=== PATIENT | female | born 1955 | race American Indian/Alaskan Native ===

== ENCOUNTER → 2018-01-03 | Outpatient (CLI) | payer BC ==
--- NOTE | 2018-01-03 14:55 | Ultrasound Report ---
ULTRASOUND GUIDED NEEDLE CORE BIOPSY OF A LEFT AXILLARY LYMPH NODE WITH CLIP PLACEMENT : 01/03/18 11:44:00 CLINICAL: Newly diagnosed left breast cancer. COMPARISON :None. FINDINGS: The procedure was explained to the patient and informed consent was obtained. Ultrasound demonstrated a suspicious lymph node in the inferior axilla measuring 2.3 x 2.0 x 0.6 cm with a thickened cortex measuring approximately 5 mm.. The skin in the axilla was prepped with Betadine and anesthetized with 1% lidocaine. Ultrasound guided needle core biopsy of the lymph node was performed through a small dermatotomy using 2% lidocaine with epinephrine for deep anesthesia and a 18-gauge Achieve biopsy device. 2 samples were obtained and placed in formalin. A clip was deployed within the lymph node. Hemostasis was achieved with minimal pressure and a sterile dressing was applied. The patient tolerated the procedure well and there were no apparent complications. She was discharged in good condition and was given instructions for wound care and followup. IMPRESSION: Uncomplicated ultrasound-guided needle core biopsy of a left lymph node with clip placement.
== END | disposition home or self-care (01) ==
LOC: SPVWC 11:44
PROVIDERS: ATTEND Surgery
DX: C50.212 Malignant neoplasm of upper-inner quadrant of left female breast (principal)
CPT/HCPCS: 38505; 76942; 88305; A4648; 88341; 88342; 88361

== ENCOUNTER 2018-01-24 12:25 | Outpatient (CLI) | payer BC ==
[2018-01-24 13:15] LABS: Blood Urea Nitrogen 11 mg/dL (7-17)
== END 2018-01-24 12:26 | disposition home or self-care (01) ==
LOC: LAB 12:25
PROVIDERS: ATTEND Surgery
DX: C50.212 Malignant neoplasm of upper-inner quadrant of left female breast (principal); Z88.0 Allergy status to penicillin; Z88.2 Allergy status to sulfonamides; Z91.040 Latex allergy status
CPT/HCPCS: 36415; 82565; 84520

== ENCOUNTER 2018-02-14 11:20 | Day surgery (SDC) | payer BC ==
[2018-02-14] MEDS ORDERED: VANCOMYCIN/NS 1 GM/250 ML 1 GM/250 ML BAG IV SCH (13:06)
[2018-02-14] MEDS ORDERED: LACTATED RINGERS 1,000 ML IV SCH ×2 (13:10→14:00)
[2018-02-14] MEDS ORDERED: ZOFRAN IV PRN (13:16)
[2018-02-14] MEDS ORDERED: DILAUDID IV PRN (13:16)
--- NOTE | 2018-02-14 13:17 | Anesthesia Day of Surgery ---
Anesthesia Day of Surgery - Day of Surgery Patient Examined: Yes Patient H&P Reviewed: Yes Patient is NPO: Yes
--- NOTE | 2018-02-14 13:18 | Anesthesia Consultation ---
Anesthesia Consult and Med Hx Date of service: 02/14/18 - Airway Anesthetic Teeth Evaluation: Good ROM Head & Neck: Adequate Mental/Hyoid Distance: Adequate Mallampati Class: Class II Intubation Access Assessment: Probably Good - Pulmonary Exam CTA: Yes - Cardiac Exam Cardiac Exam: RRR - Pre-Operative Health Status ASA Pre-Surgery Classification: ASA3 Proposed Anesthetic Plan: General (GA with LMA ok)
[2018-02-14] MEDS ORDERED: VERSED IV NR (14:00)
--- NOTE | 2018-02-14 14:21 | Short Stay Summary ---
Short Stay Documentation Date of service: 02/14/18 Narrative H&P: The patient is a 63 yo F with diagnosis of LEFT sided breast cancer who is a candidate for chemotherapy. She presents for port placement. - History H&P: obtained from office - Allergies and Medications Current Medications: Allergies latex Adverse Reaction (Unverified 01/24/18 12:26) Rash Penicillins Adverse Reaction (Unverified 01/24/18 12:27) Rash Sulfa (Sulfonamide Antibiotics) Adverse Reaction (Unverified 01/24/18 12:26) Rash Home Medications Medication Instructions Recorded Confirmed Last Taken Type Latanoprost 0.005% 1 drop OP QHS 02/13/18 02/14/18 02/13/18 History Olmesartan/Amlodipin/Hcthiazid 1 tab PO DAILY 02/13/18 02/14/18 02/13/18 History [Qzznfqy-Xsnotx-Pwev 40-10-25Mg] Active Medications Hydromorphone HCl (Dilaudid) 0.5 mg IV Q10MIN PRN PRN Reason: Pain , Severe (7-10) Vancomycin HCl (Vancomycin/Ns 1 Gm/250 Ml) 1 gm in 250 mls @ 167.007 mls/hr IV PREOP RADHA; Protocol Stop: 02/14/18 23:59 Last Admin: 02/14/18 13:41 Dose: 167.007 mls/hr Lactated Ringer's (Lactated Ringers) 1,000 mls @ 75 mls/hr IV DIRECT RADHA Stop: 02/14/18 23:59 Lactated Ringer's (Lactated Ringers) 1,000 mls @ 100 mls/hr IV DIRECT RADHA Midazolam HCl (Versed) 2 mg IV PREOP NR Stop: 02/14/18 23:59 Last Admin: 02/14/18 13:40 Dose: 2 mg Ondansetron HCl (Zofran) 4 mg IV ONCE PRN PRN Reason: Nausea And Vomiting - Brief post op/procedure progress note Date of procedure: 02/14/18 Pre-op diagnosis: left breast cancer Post-op diagnosis: same Procedure: Right internal jugular port a cath placement with ultrasound guidance, fluoroscopy Anesthesia: GETA, local Findings: good placement of port with no ptx Surgeon: KYLE CASTILLO Estimated blood loss: minimal Pathology: none Condition: stable - Hospital course Hospital course: Patient was observed in recovery room and discharged to home in stable condition. - Disposition Condition at discharge: Good Disposition: DC-01 TO HOME OR SELFCARE Short Stay Discharge Plan Activity: no restrictions Diet: regular Wound: open to air (may shower, pat incision dry, do not scrub.) Follow up with: RUDI LEGGETT [Other] - 7 Days LYNN ESPARZA MD [Staff Physician] - 7 Days Prescriptions: Ibuprofen [Motrin 800 MG tab] 800 mg PO Q8HR PRN #30 tablet PRN Reason: Pain , Severe (7-10)
[2018-02-14] MEDS ORDERED: DILAUDID ONE (14:30)
[2018-02-14] MEDS ORDERED: DIPRIVAN 10 MG/ML IV ONE ×2 (14:30→15:29)
[2018-02-14] MEDS ORDERED: XYLOCAINE MPF 2% ONE (14:30)
[2018-02-14] MEDS ORDERED: HEPARIN 10,000 UNITS/10 ML ONE (14:31)
[2018-02-14] MEDS ORDERED: NACL 0.9% 100 ML ONE (14:32)
[2018-02-14] MEDS ORDERED: MARCAINE 0.25% INFILTRATI ONE ×2 (14:33→15:22)
[2018-02-14] MEDS ORDERED: XYLOCAINE 1% 20 mL ONE (14:33)
[2018-02-14] MEDS ORDERED: XYLOCAINE 1% 20 mL INFILTRATI ONE (15:22)
--- NOTE | 2018-02-14 17:04 | Post Anesthesia Evaluation ---
- Post Anesthesia Evaluation Patient Participated: Yes Airway Patent: Yes Stable Respiratory Function: Yes Nausea/Vomiting: No Temp > 96.8F: Yes Pain Manageable: Yes Adequeate Hydration: Yes Anesthesia Complications: No
--- NOTE | 2018-02-14 17:48 | Operative Report ---
Operative Report Operative Report: Date of procedure: 02/14/18 Pre-op diagnosis: left breast cancer Post-op diagnosis: same Procedure: Right internal jugular port a cath placement with ultrasound guidance, fluoroscopy Anesthesia: GETA, local Findings: good placement of port with no ptx Surgeon: KYLE CASTILLO Estimated blood loss: minimal Pathology: none Condition: stable HPI and indication: Patient is a 63-year-old female who has been diagnosed with left-sided breast cancer and is deemed a candidate for chemotherapy. The patient was evaluated for Port-A-Cath placement as an outpatient. All of the risks associated with the procedure were discussed with the patient including but not limited to pneumothorax, infection, bleeding, malpositioned port, injury to other structures. The patient understands and all questions were answered. Consent was signed and placed on chart. Procedure in detail: The patient was identified in the preoperative area, taken back to operating room, placed on operating table in supine position. After anesthesia was induced both arms were tucked and upper chest and neck were prepped and draped in usual sterile fashion. A timeout was performed. The was placed in Trendelenburg position. Local anesthetic was infiltrated into the skin at the intended puncture site. Right subclavian vein excess was attempted however due to the patient's body habitus, it was too deep and could not safely be accessed. Therefore, the right internal jugular vein Was accessed on the first stick using ultrasound guidance. There was return of dark red, nonpulsatile blood. The wire was threaded under fluoroscopy without resistance and positioning confirmed. The needle was then removed. Using a 15 blade, an incision was made in the right upper chest and dissection carried down through the skin and subcutaneous tissue using Bovie electrocautery. Hemostasis was achieved along the way. A pocket for the port was then created bluntly and with electrocautery. The catheter was flushed and tunneled from the pocket to the wire. A breakaway catheter/dilator sheath then inserted over the wire under fluoroscopy, and the wire and dilator removed. The catheter was then inserted through the breakaway catheter which was then removed. The catheter sat flush under the skin. Using continuous fluoroscopy, the catheter was pulled back until the tip was visualized in the right atrium. The catheter was then cut to size and the port attached in the usual fashion. The port was then sutured into place to the pre-pectoral fascia using 2-0 Vicryl interrupted sutures. The wound was irrigated and hemostasis ensured. The port was tested with heparinized saline and there was return of blood and it flushed easily. The port was then instilled with 3000 units of heparin. The deep dermal layer was then closed with interrupted 3-0 Vicryl stitches. The skin incisions were closed with 4-0 Monocryl subcuticular stitches and skin glue. Intraoperative chest x-ray did show good positioning of the port, without evidence of pneumothorax. At the end of the case, all sponge, instrument, sharp counts were correct 2. The shunt was awoken from anesthesia extubated and taken to PACU in stable condition.
[2018-02-14 17:49] VITALS: BP 128/78
--- NOTE | 2018-02-15 08:08 | Fluoroscopy Report ---
FLUOROSCOPY CENTRAL VENOUS DEVICE PLACEMENT History: Left breast cancer, venous insufficiency Findings: AP view of the chest and a single fluoroscopic image of the precordial region demonstrates a right Jrfvgk-f-Sona has been inserted which terminates near the cavoatrial junction. The lungs are clear. No evidence for pneumothorax. Heart and mediastinal structures are unremarkable. Impression: Right Mcrkzo-g-Mkkn placement. No pneumothorax.
== END 2018-02-14 18:15 | disposition home or self-care (01) ==
LOC: OR 11:20
PROVIDERS: ATTEND Surgery
DX: C50.912 Malignant neoplasm of unspecified site of left female breast (principal); Z79.899 Other long term (current) drug therapy; Z88.0 Allergy status to penicillin; Z88.2 Allergy status to sulfonamides; Z91.040 Latex allergy status
CPT/HCPCS: 36561; 77001; C1788; J1170; J1644; J2250; J2704; J3370; J7120

== ENCOUNTER 2018-09-28 11:59 | Outpatient (CLI) | payer BC ==
--- NOTE | 2018-10-02 13:09 | Magnetic Resonance Report ---
BILATERAL BREAST MRI WITHOUT AND WITH CONTRAST: 09/28/18 11:59:00 CLINICAL: Left breast cancer status post neoadjuvant chemotherapy. COMPARISON:09/20/18 bilateral mammogram and 01/26/18 MRI. TECHNIQUE: Axial 1.0-mm T1 without, axial high resolution 2.0-mm T2 and axial 1.0-mm dynamic Vibrant high-resolution postcontrast T1 fat saturation sequences on a 1.5 Nereida magnet. The examination was performed with an 8 channel dedicated [employer] breast coil. Post processing with CAD and subtraction was performed on an [employer] workstation. 19.0 cc of Multihance was injected without incident for the contrast portion of the exam. Consent was obtained prior to the administration of the contrast. FINDINGS: Right: Minimal background parenchymal enhancement. No mass or suspicious enhancement. No suspicious lymph nodes. Left: Minimal background parenchymal enhancement. No mass or suspicious enhancement. The previously described enhancing masses are resolved. No suspicious left axillary or left internal mammary lymph nodes. The previously biopsied metastatic left axillary lymph node is smaller. IMPRESSION: Negative study with a complete response to chemotherapy by MRI. BI-RADS 6 -- Known Cancer
== END 2018-09-28 12:00 | disposition home or self-care (01) ==
LOC: SPVIMAG 11:59
PROVIDERS: ATTEND Surgery
DX: C50.212 Malignant neoplasm of upper-inner quadrant of left female breast (principal)
CPT/HCPCS: A9577; C8908; 77049

== ENCOUNTER 2018-12-05 10:00 | Observation (INO) | payer BC, OTHER ==
--- NOTE | 2018-12-03 15:46 | Anesthesia Consultation ---
Anesthesia Consult and Med Hx Date of service: 12/03/18 - Airway Anesthetic Teeth Evaluation: Dentures ROM Head & Neck: Adequate Mental/Hyoid Distance: Adequate Mallampati Class: Class III Intubation Access Assessment: Possibly Difficult - Pulmonary Exam CTA: Yes - Cardiac Exam Cardiac Exam: RRR - Pre-Operative Health Status ASA Pre-Surgery Classification: ASA3 Proposed Anesthetic Plan: General Nerve Block: PEC - Pulmonary Hx Smoking: Yes (STOPPED X 20 YRS (1/2 PPD)) Hx Respiratory Symptoms: Yes (seasonal bronchitis; no recent symptoms) Hx Sleep Apnea: No (MARIAELENA PRE SCREEN HIGH RISK.) - Cardiovascular System Hx Hypertension: Yes Hx Heart Attack/AMI: No Hx Percutaneous Transluminal Coronary Angioplasty (PTCA): No - Central Nervous System Hx Seizures: No CVA: No - Gastrointestinal Hx Gastroesophageal Reflux Disease: No - Endocrine Hx Renal Disease: No Hx Liver Disease: No Hx Insulin Dependent Diabetes: No Hx Non-Insulin Dependent Diabetes: No Hx Thyroid Disease: No - Hematic Hx Anemia: Yes - Other Systems Hx Cancer: Yes (hx breast Ca; last dose chemo 08/2018) - Additional Comments Anesthesia Medical History Comments: No hx anesthetic complications. Hx DVT 2018 (now resolved; off eliquis >1 month).
[~2018-12-05 10:00] MED LIST: MARCAINE 0.25% INFILTRATI ONE; NEURONTIN PO NR; SUBLIMAZE IV PRN; VERSED IV NR; XYLOCAINE 1% 20 mL ONE
--- NOTE | 2018-12-05 11:12 | Anesthesia Day of Surgery ---
Anesthesia Day of Surgery - Day of Surgery Patient Examined: Yes Patient H&P Reviewed: Yes Patient is NPO: Yes
[2018-12-05] MEDS ORDERED: TYLENOL PO ONE (11:13)
[2018-12-05] MEDS: LACTATED RINGERS 1,000 ML IV SCH (11:50)
[2018-12-05] MEDS ORDERED: MARCAINE-EPI 0.25%-1:200,000 INFILTRATI ONE (16:17)
[2018-12-05] MEDS ORDERED: DIPRIVAN 10 MG/ML IV ONE (16:47)
[2018-12-05] MEDS ORDERED: SUBLIMAZE ONE (16:47)
[2018-12-05] MEDS ORDERED: XYLOCAINE MPF 2% ONE (16:47)
[2018-12-05] MEDS ORDERED: VANCOMYCIN/NS 1 GM/250 ML 1 GM/250 ML BAG IV NR (17:00)
[2018-12-05] MEDS ORDERED: LACTATED RINGERS 1,000 ML ONE ×2 (17:13→21:30)
[2018-12-05] MEDS ORDERED: NACL P/F VIAL (10 ML) 10 ML ONE (17:15)
[2018-12-05] MEDS ORDERED: METHYLENE BLUE ONE (17:15)
[2018-12-05] MEDS ORDERED: ZOFRAN IV PRN (17:20)
[2018-12-05] MEDS ORDERED: TYLENOL PO PRN (17:20)
[2018-12-05] MEDS ORDERED: REGLAN PO PRN (17:20)
[2018-12-05] MEDS ORDERED: BENADRYL PO PRN (17:20)
[2018-12-05] MEDS ORDERED: PERCOCET 5/325 PO PRN (17:20)
[2018-12-05] MEDS ORDERED: SODIUM CHLORIDE FLUSH SYRINGE 10 ML IV PRN (17:20)
[2018-12-05] MEDS ORDERED: PROAIR IH PRN (17:21)
--- NOTE | 2018-12-05 17:25 | Short Stay Summary ---
Short Stay Documentation Date of service: 12/05/18 - History H&P: obtained from office - Allergies and Medications Current Medications: Allergies iodine Allergy (Verified 11/29/18 17:33) Unknown latex Adverse Reaction (Verified 11/29/18 17:33) Rash Penicillins Adverse Reaction (Verified 11/29/18 17:33) Rash Sulfa (Sulfonamide Antibiotics) Adverse Reaction (Verified 11/29/18 17:33) Rash Home Medications Medication Instructions Recorded Confirmed Last Taken Type Latanoprost 0.005% 1 drop OP QHS 02/13/18 11/29/18 02/13/18 History Olmesartan/Amlodipin/Hcthiazid 1 tab PO DAILY 02/13/18 11/29/18 02/13/18 History [Aiiaqkp-Ugksyn-Toce 40-10-25Mg] Albuterol Sulfate [Proventil Hfa] 2 puff IH PRN PRN 11/29/18 11/29/18 Unknown History Cyanocobalamin (Vitamin B-12) 2,500 mcg PO DAILY 11/29/18 11/29/18 Unknown Hist ory [Vitamin B12] Docusate Sodium [Colace] 100 mg PO BID PRN 11/29/18 11/29/18 Unknown History Ferrous Sulfate [Feosol] 325 mg PO QDAY 11/29/18 11/29/18 Unknown History Folic Acid [Folvite] 1 mg PO QDAY 11/29/18 11/29/18 Unknown History Levocetirizine Dihydrochloride 5 mg PO DAILY 11/29/18 11/29/18 Unknown History [Xyzal] Mirabegron [Myrbetriq] 50 mg PO QDAY 11/29/18 11/29/18 Unknown History Ondansetron [Zofran ODT TAB] 8 mg PO PRN PRN 11/29/18 11/29/18 Unknown History Active Medications Acetaminophen (Tylenol) 650 mg PO Q6H PRN PRN Reason: Pain MILD(1-3)/Fever >100.5/BRODERICK Albuterol (Proair) 2 puff IH PRN PRN PRN Reason: Shortness Of Breath Celecoxib (Celebrex) 200 mg PO PREOP NR Stop: 12/05/18 23:59 Last Admin: 12/05/18 11:50 Dose: 200 mg Documented by: Diphenhydramine HCl (Benadryl) 25 mg PO Q8H PRN PRN Reason: Itching Docusate Sodium (Colace) 100 mg PO BID RADHA Fentanyl (Sublimaze) 100 mcg IV ONCE PRN PRN Reason: sedation for nerve block Stop: 12/05/18 23:59 Last Admin: 12/05/18 14:31 Dose: 100 mcg Documented by: Gabapentin (Neurontin) 300 mg PO PREOP NR Stop: 12/05/18 23:59 Last Admin: 12/05/18 14:31 Dose: 300 mg Documented by: Lactated Ringer's (Lactated Ringers) 1,000 mls @ 100 mls/hr IV DIRECT RADHA Last Admin: 12/05/18 11:50 Dose: 100 mls/hr Documented by: Lactated Ringer's (Lactated Ringers) 1,000 mls @ 125 mls/hr IV DIRECT RADHA Metoclopramide HCl (Reglan) 10 mg PO Q6H PRN PRN Reason: Nausea And Vomiting Midazolam HCl (Versed) 2 mg IV PREOP NR Stop: 12/05/18 23:59 Last Admin: 12/05/18 14:31 Dose: 2 mg Documented by: Ondansetron HCl (Zofran) 4 mg IV Q8H PRN PRN Reason: N/V unrelieved by Reglan Oxycodone/Acetaminophen (Percocet 5/325) 1 tab PO Q6H PRN PRN Reason: Pain, Moderate (4-6) Sodium Chloride (Sodium Chloride Flush Syringe 10 Ml) 10 ml IV PRN PRN PRN Reason: LINE FLUSH - Brief post op/procedure progress note Date of procedure: 12/05/18 Pre-op diagnosis: Left breast cancer Post-op diagnosis: same Procedure: Right total mastectomy, left total mastectomy with SLNB Anesthesia: GETA Findings: Bilateral mastectomy with left SLNB and 4 SLNS negative for malignancy Surgeon: LYNN ESPARZA Planer Tailer: SHEKHAR HUERTA Estimated blood loss: 50-100ml Pathology: list (bilateral mastectomy; left SLNBx4) Specimen disposition: to lab Condition: stable - Disposition Condition at discharge: Good Disposition: DC/TX-02 SHRT-TRM GEN HOSP IP Short Stay Discharge Plan Activity: other (no heavy lifting) Diet: regular Wound: keep clean and dry Follow up with: PRIMARY CARE,MD [Primary Care Provider] - 7 Days LYNN ESPARZA MD [Staff Physician] - 7 Days
[2018-12-05] MEDS ORDERED: METHYLENE BLUE IV ONE (17:29)
--- NOTE | 2018-12-05 17:30 | Operative Report ---
Operative Report Operative Report: Operative Report: Date of Service: December 05, 2018 Preoperative diagnosis: Multifocal left breast cancer of the upper inner quadrant Postoperative diagnosis: Same Procedure: Left total mastectomy with sentinel lymph node biopsy and right total mastectomy Surgeon: Yue Peraza M.D. Olive Brine Tester: Rocio Yanes M.D. Anesthesia: Gen. Findings: Left breast clip present within left total mastectomy; x4 SLNs and negative for malignancy. Complications: None Drains:19 [place] FLORY drains bilaterally Estimated blood loss: 100 cc Disposition: PACU in good condition Indications for operative procedure: This is a 63-year-old lady with stage II left breast cancer of the upper inner quadrant, IDCA grade 3 [id number] Her-2 positive. She completed neoadjuvant chemotherapy in May 2018 and was not compliant with her visits. Recent breast MRI, mammogram and breast ultrasound with no suspicious findings and complete response to chemotherapy. Recommendations were to proceed with a left total mastectomy with SLNB and possible ALND, did not recommend breast conservation given concerns prior to chemotherapy of multifocal breast cancer and patient did not have breast MRI biopsy that was recommended to rule out multifocal breast cancer. She wished to proceed with a prophylactic right mastectomy and left total mastectomy. She wished to proceed with the above procedure. Procedure in detail: The patient was taken to the operating room and was placed supine. Gen. anesthesia was administered. The left nipple was injected with radioisotope and 1 cc of methylene blue. Bilateral chest and axillas were prepped and draped in the normal sterile operative fashion. Timeout was perf ormed. Typical mastectomy incision markings were made. Attention was taken toward the right breast first. First began raising of the superior flap to the level of the clavicle superiorly and posteriorly to the pectoralis muscle. Followed by raising of the medial flap to the level of the sternum and posteriorly to the pectoralis muscle. Followed by raising of the lateral flap to the level of the latissimus dorsi muscle and taken down posteriorly. Followed by raising of the inferior flap to the level of the inframammary fold taken posterior to the pectoralis muscle. The mastectomy/breast was removed from the pectoralis muscle without incident. The specimen was appropriately marked and sent to pathology. Hemostasis was obtained. The port was noted and unharmed. A 19 Fr drain was placed. The subcutaneous tissues were approximated and closed using interrupted 3-0 Vicryl and the skin closed using a 4-0 running Monocryl and dermabond. Attention was taken towards the left breast. A gamma probe was inserted into the axilla to identify the sentinel lymph node location with uptake noted. A skin incision was made with a 10 blade knife and dissection taken down to the subcutaneous tissues. First began raising of the superior flap to the level of the clavicle superiorly and posteriorly to the pectoralis muscle. Followed by raising of the medial flap to the level of the sternum and posteriorly to the pectoralis muscle. Followed by raising of the lateral flap to the level of the latissimus dorsi muscle and taken down posteriorly. The gamma probe was inserted into the axilla, the axillary fascia was opened and 4 sentinel lymph nodes were identified and sent to pathology. All remaining counts were less than 10% of the highest count lymph node. Pathology with findings with all sentinel lymph nodes negative for malignancy noted on frozen section. Then proceeded with raising of the inferior flap to the level of the inframammary fold taken posterior to the pectoralis muscle. The mastectomy/breast was removed from the pectoralis muscle without incident. The specimen was appropriately marked and sent to radiology with findings of breast clip present and sent to pathology. Hemostasis was obtained. The subcutaneous tissues were approximated and closed using interrupted 3-0 Vicryl and the skin closed using a 4-0 running Monocryl and dermabond. She tolerated surgery very well and was awaken from anesthesia without any complications and then transported to PACU in good condition.
[2018-12-05] MEDS ORDERED: PROVENTIL IH PRN (17:34)
[2018-12-05] MEDS ORDERED: ZOFRAN ONE (18:00)
[2018-12-05] MEDS ORDERED: DECADRON ONE (18:00)
[2018-12-05] MEDS ORDERED: LACTATED RINGERS 1,000 ML IV SCH (18:00)
[2018-12-05] MEDS ORDERED: NEO SYNEPHRINE ONE (21:30)
[2018-12-05] MEDS ORDERED: MORPHINE IV PRN (21:40)
[2018-12-05] MEDS ORDERED: COLACE PO SCH (22:00)
[2018-12-06] MEDS: LACTATED RINGERS 1,000 ML IV SCH (02:21)
--- NOTE | 2018-12-06 07:32 | Progress Note ---
Assessment and Plan This is a 63 year old lady with Stage II multifocal left breast cancer of the upper inner quadrant, POD left total mastectomy with SLNB and right total mastectomy. 1. No acute events overnight, pain in good control. 2. Bilateral chest incisions healing well, FLORY drain education. 3. OOB to hallway. 4. D/C planning for later today. Subjective Date of service: 12/06/18 Principal diagnosis: Multifocal left breast cancer of the upper inner quadrant Interval history: POD#1 left total mastectomy with SLNB and right total mastectomy Objective - Constitutional Vitals: Vital Signs - 12hr 12/05/18 12/05/18 12/05/18 22:00 22:05 22:10 Temperature 97.3 F L Pulse Rate 88 80 78 Respiratory 16 16 16 Rate Blood Pressure 138/76 129/56 101/76 Blood Pressure [Right] O2 Sat by Pulse 98 98 98 Oximetry 12/05/18 12/05/18 12/05/18 22:15 22:30 23:00 Temperature Pulse Rate 87 86 86 Respiratory 16 14 14 Rate Blood Pressure 117/56 119/54 119/54 Blood Pressure [Right] O2 Sat by Pulse 98 98 96 Oximetry 12/05/18 12/06/18 23:30 04:35 Temperature 97.9 F 98.2 F Pulse Rate 86 85 Respiratory 16 20 Rate Blood Pressure 118/85 108/56 Blood Pressure 110/50 [Right] O2 Sat by Pulse 96 96 Oximetry General appearance: Present: no acute distress - EENT Eyes: PERRL, EOM intact ENT: hearing intact, clear oral mucosa, dentition normal Ears: bilateral: normal - Neck Neck: supple, normal ROM - Respiratory Respiratory effort: normal Respiratory: bilateral: CTA - Breasts Breasts: other (bilateral chest incisions healing well; no hematoma; incisions c/d/i; FLORY drains to bulb suction) - Cardiovascular Rhythm: regular Extremities: no ischemia, pulses intact, pulses symmetrical, No edema, normal temperature, normal color, Full ROM - Gastrointestinal General gastrointestinal: Present: soft, non-tender, non-distended Rectal Exam: deferred - Genitourinary Female genitourinary: deferred - Integumentary Integumentary: clear, warm, erythema - Musculoskeletal Musculoskeletal: strength equal bilaterally - Neurologic Neurologic: CNII-XII intact, moves all extremities - Psychiatric Psychiatric: appropriate mood/affect, intact judgment & insight, memory intact, cooperative Medications & Allergies - Medications Allergies/Adverse Reactions: Allergies iodine Allergy (Verified 11/29/18 17:33) Unknown latex Adverse Reaction (Verified 11/29/18 17:33) Rash Penicillins Adverse Reaction (Verified 11/29/18 17:33) Rash Sulfa (Sulfonamide Antibiotics) Adverse Reaction (Verified 11/29/18 17:33) Rash Home Medications: Home Medications Medication Instructions Recorded Confirmed Last Taken Type Latanoprost 0.005% 1 drop OP QHS 02/13/18 12/05/18 12/04/18 21:00 History Olmesartan/Amlodipin/Hcthiazid 1 tab PO DAILY 02/13/18 12/05/18 12/05/18 05:00 History [Dsbxlmj-Tjxaon-Eleq 40-10-25Mg] Albuterol Sulfate [Proventil Hfa] 2 puff IH PRN PRN 11/29/18 12/05/18 Unknown History Cyanocobalamin (Vitamin B-12) 2,500 mcg PO DAILY 11/29/18 12/05/18 Unknown History [Vitamin B12] Docusate Sodium [Colace] 100 mg PO BID PRN 11/29/18 12/05/18 Unknown History Ferrous Sulfate [Feosol] 325 mg PO QDAY 11/29/18 12/05/18 12/04/18 09:00 History Folic Acid [Folvite] 1 mg PO QDAY 11/29/18 12/05/18 12/04/18 09:00 History Levocetirizine Dihydrochloride 5 mg PO DAILY 11/29/18 12/05/18 Unknown History [Xyzal] Mirabegron [Myrbetriq] 50 mg PO QDAY 11/29/18 12/05/18 12/05/18 05:00 History Ondansetron [Zofran ODT TAB] 8 mg PO PRN PRN 11/29/18 12/05/18 Unknown History HYDROcodone/APAP 5-325 [Willis 1 each PO Q6HR PRN #30 tablet 12/06/18 Unknown Rx 5/325] Active Medications: Generic Name Dose Route Start Last Admin Trade Name Freq PRN Reason Stop Dose Admin Acetaminophen 650 mg 12/05/18 17:20 Tylenol PO Q6H PRN Pain MILD(1-3)/Fever >100.5/BRODERICK Albuterol 2.5 mg 12/05/18 17:34 Proventil IH Q4HRT PRN Shortness Of Breath Diphenhydramine HCl 25 mg 12/05/18 17:20 Benadryl PO Q8H PRN Itching Docusate Sodium 100 mg 12/05/18 22:00 Colace PO BID RADHA Lactated Ringer's 1,000 mls @ 100 mls/hr 12/03/18 16:00 12/06/18 02:21 Lactated Ringers IV 100 mls/hr DIRECT RADHA Administration Lactated Ringer's 1,000 mls @ 125 mls/hr 12/05/18 18:00 Lactated Ringers IV DIRECT RADHA Metoclopramide HCl 10 mg 12/05/18 17:20 Reglan PO Q6H PRN Nausea And Vomiting Morphine Sulfate 2 mg 12/05/18 21:40 Morphine IV Q4H PRN Pain, Moderate (4-6) Ondansetron HCl 4 mg 12/05/18 17:20 Zofran IV Q8H PRN N/V unrelieved by Reglan Oxycodone/Acetaminophen 1 tab 12/05/18 17:20 Percocet 5/325 PO Q6H PRN Pain, Moderate (4-6) Sodium Chloride 10 ml 12/05/18 17:20 Sodium Chloride Flush Syringe 10 Ml IV PRN PRN LINE FLUSH
--- NOTE | 2018-12-06 08:15 | XRay Report ---
LEFT BREAST SPECIMEN RADIOGRAPH HISTORY: Left breast cancer. COMPARISON: 09/28/2018 mammogram FINDINGS/IMPRESSION: 3 localizer clips are identified in the mastectomy specimen. Signer Name: Carlos White MD Signed: 12/06/2018 8:11 AM Workstation Name: [id number]
[2018-12-06 17:42] VITALS: BP 126/47
== END 2018-12-06 18:35 | disposition home or self-care (01) ==
LOC: OR 10:00 → OB 17:20
PROVIDERS: ADMIT Surgery; ATTEND Surgery
DX: C50.212 Malignant neoplasm of upper-inner quadrant of left female breast (principal); I10 Essential (primary) hypertension; F17.210 Nicotine dependence, cigarettes, uncomplicated; Z90.710 Acquired absence of both cervix and uterus; Z79.899 Other long term (current) drug therapy
CPT/HCPCS: 19303; 38525; 38792; 64450; 76098; 78800; 88305; 88307; 88309; 88331; 88333; 88342; A9541; G0378; J1100; J2250; J2370; J2405; J2704; J3010; J3370; J7120; Q9968; 88341

== ENCOUNTER 2020-03-10 06:16 | Day surgery (SDC) | payer BC ==
[2020-03-10] MEDS ORDERED: BUPIVACAINE/PF (0.5%) 5 MG/1 ML 30 ML VIAL INFILTRATI ONE ×2 (07:18→08:03)
[2020-03-10] MEDS ORDERED: LIDOCAINE (1%) 10 MG/1 ML VIAL 20 ML MDV ONE (07:18)
[2020-03-10] MEDS ORDERED: LIDOCAINE (1%) 10 MG/1 ML VIAL 20 ML MDV INFILTRATI ONE (08:03)
--- NOTE | 2020-03-10 08:20 | Procedure Note ---
Date of procedure: 03/10/20 Pre-op diagnosis: breast cancer Post-op diagnosis: same Procedure: removal of right sided port Findings: Patient identified and positioned supine on hospital stretcher. R chest prepped and draped in sterile fashion. Time out performed. The skin was anesthetized with local anesthetic at prior scar. Incision made using 15 blade and dissection carried out in the subcutaneous tissue using hemostat. Port identified and catheter dissected from surrounding tissue with hemostat. The catheter was grasped between two hemostats and cut with scissors. The catheter was removed. Pressure held at site for 5 minutes. No bleeding from tract. The subcutaneous port was then dissected circumfrentially using hemostat and removed from wound. Both catheter and port were passed off table for specimen, ID only. The wound was irrigated and hemostasis carefully achieved with pressure. Hemostasis was ensured. The wound was clean and no evidence of infection. The incision was then closed in layered fashion. Deep dermal layer closed with inte rrupted 3-0 vicryl suture. Skin approximated using 4-0 monocryl running subcuticular stitch and skin glue. Once glue was dry, a 2x2 gauze was applied for pressure and secured with tegaderm. Patient tolerated the procedure well. All sharps, instruments, and sponges were accounted for. The patient was discharged to home in stable condition. Anesthesia: local Surgeon: KYLE CASTILLO Estimated blood loss: minimal Pathology: list (port and catheter) Specimen disposition: to lab Condition: stable Disposition: other (HOME)
[2020-03-10 08:21] VITALS: BP 144/75
== END 2020-03-10 06:17 | disposition home or self-care (01) ==
LOC: OR 06:16
PROVIDERS: ATTEND Surgery
DX: C50.919 Malignant neoplasm of unspecified site of unspecified female breast (principal); H40.9 Unspecified glaucoma; E78.00 Pure hypercholesterolemia, unspecified; I10 Essential (primary) hypertension; Z91.041 Radiographic dye allergy status; Z88.0 Allergy status to penicillin; Z88.2 Allergy status to sulfonamides; Z91.040 Latex allergy status; Z79.899 Other long term (current) drug therapy; Z87.891 Personal history of nicotine dependence; Z90.49 Acquired absence of other specified parts of digestive tract; Z90.710 Acquired absence of both cervix and uterus; Z98.890 Other specified postprocedural states; Z86.2 Personal history of diseases of the blood and blood-forming organs and certain disorders involving the immune mechanism
CPT/HCPCS: 88300; 88302